=== PATIENT | male | born 1970 | race Caucasian/White ===

== ENCOUNTER 2017-11-12 09:23 | Observation (INO) | payer OTHER ==
--- NOTE | 2017-11-11 15:23 | Diagnostic Imaging Report ---
PROCEDURE: X-RAY CHEST, TWO VIEWS COMPARISON: None. INDICATIONS: PRE OP CERVICAL SURGERY FINDINGS: LUNGS: Well-inflated without mass or infiltrate. Pulmonary vascular markings are normal. PLEURA: No effusions or pneumothorax. HEART \T\ MEDIASTINUM: Cardiomediastinal silhouette is normal. No hilar lymphadenopathy. Small calcified mediastinal lymph nodes are present. BONES \T\ SOFT TISSUES: No acute findings. Medical devices: Laparoscopic gastric band is in appropriate orientation. CONCLUSION: No acute cardiopulmonary process. Dictated by: Tatyana Ayala M.D. on 11/11/2017 at 15:24 Electronically approved by: Tatyana Ayala M.D. on 11/11/2017 at 15:24
[2017-11-11 15:35] LABS: BASOPHILS # (AUTO) 0.1 (0.0-0.1); BASOPHILS % 0.7 % (0.0-1.0); EOSINOPHILS # (AUTO) 0.1 (0.0-0.4); EOSINOPHILS % 0.9 % (0.0-6.0); HEMATOCRIT 39.5 % (38.2-49.6); HEMOGLOBIN 13.6 g/dL (14.0-18.0); LYMPHOCYTES # (AUTO) 2.7 (1.0-3.2); LYMPHOCYTES % 30.3 % (18.0-39.1); MEAN CORPUSCULAR HEMOGLOBIN 31.8 pg (28-32); MEAN CORPUSCULAR HGB CONC 34.4 g/dL (31-35); MEAN CORPUSCULAR VOLUME 92.3 fL (81-99); MONOCYTES # (AUTO) 0.7 (0.2-0.8); MONOCYTES % 7.4 % (4.4-11.3); NEUTROPHILS # (AUTO) 5.4 (2.1-6.9); NEUTROPHILS % 59.8 % (38.7-80.0); PLATELET COUNT 276 x10e3/uL (140-360); RED BLOOD COUNT 4.28 x10e6/uL (4.3-5.7)
[2017-11-11 15:39] LABS: INR 1.03; PARTIAL THROMBOPLASTIN TIME 25.3 seconds (23.8-35.5); PROTHROMBIN TIME 12.7 seconds (11.9-14.5)
[2017-11-11 15:47] LABS: ANION GAP 11.8 mmol/L (8-16); BLOOD UREA NITROGEN 17 mg/dL (7-26); BUN/CREATININE RATIO 17 (6-25); CALCIUM 9.4 mg/dL (8.4-10.2); CARBON DIOXIDE 25 mmol/L (22-29); CHLORIDE 105 mmol/L (98-107); CREATININE, SERUM 0.98 mg/dL (0.72-1.25); EST GLOMERULAR FILTRATION RATE > 60 ML/MIN (60-); GLUCOSE 93 mg/dL (74-118); POTASSIUM 4.8 mmol/L (3.5-5.1); SODIUM 137 mmol/L (136-145)
[~2017-11-12] VITALS: Ht 188 cm; Wt 148.3 kg
[~2017-11-12 09:23] MED LIST: ADDERALL XR 3030 MG PO; AZELASTINE137 MCG/0.; BACITRACIN 50,000 UNIT VIAL ONE; BUDESONIDE0.5 GM; BUPIVACAINE 0.5%/EPI 30 ML SDV INJ ONE; BUPROPION HCL150 MG PO; CLOBETASOL1 EA/15 GM TOP; CLORTRIMAZOLE; CRESTOR10 MG PO; CYCLOBENZAPRINE10 MG PO; DIVALPROEX SOD250 M1 PO; EPINEPHRINE 11 MG/ML INJ; FLOMAX0.4 MG PO; FLUTICASONE; FOLIC ACID1 MG PO; GELATIN SPONGE SZ 100 ONE; LEXAPRO10 MG PO; LIDOCAINE HCL50 ML TOP; LORAZEPAM0.5 MG PO; MAXALT MLT10 MG PO; METHOCARBAMOL750 MG PO; METOPROLOL TART25 MG PO; MUPIROCIN22 GM; ORENCIA 250 MG250 MG INJ; PREDNISONE10 MG PO; PROMETHAZINE HC25 M1 PO; RELPAX40 MG PO; SULFASALAZINE500 MG PO; TACROLIMUS TOP; THROMBIN FOR SOLN 5,000 UNIT VIAL ONE; VENTOLIN HFA18 GM INH; VOLTAREN100 GM TOP
--- OUTSIDE RECORDS SUMMARY | 2017-11-12 09:25 | XMS REPORT | Clinical Summary ---
Author Author [facility] Organization [facility] Address Unknown Phone Unavailable Care Team Providers Care Tape Deck Installer Name Role Phone Evelio Rivas MD PCP Allergies Active Allergy Reactions Severity Noted Date Comments Aspirin Anaphylaxis High 01/20/2016 Amoxicillin-Pot GI Intolerance High 01/19/2016 vomiting Clavulanate Tramadol 03/25/2017 Night payan Current Medications Prescription Sig. Disp. Refills Start End Date Status Date amphetamine-dextroampheta Take 30 mg by mouth every Active mine XR (ADDERALL XR) 30 morning. MG 24 hr capsule LORAZepam (ATIVAN) 0.5 MG Take 0.5 mg by mouth Active tablet nightly as needed (sleep). cetirizine (ZyrTEC) 10 MG Take 10 mg by mouth daily Active tablet as needed for allergies. rosuvastatin (CRESTOR) 10 Take 10 mg by mouth Active MG tablet nightly. buPROPion XL (WELLBUTRIN Take 300 mg by mouth Active XL) 300 MG 24 hr tablet daily. fluticasone (FLONASE) 50 1 spray into each nostril Active mcg/actuation nasal spray 2 (two) times a day. polyethylene glycol Take 8.5 g by mouth daily Active (MIRALAX) 17 gram packet as needed. ibuprofen (ADVIL,MOTRIN) Take 200 mg by mouth Active 200 MG tablet every 6 (six) hours as needed for mild pain. omeprazole-sodium Take 1 capsule by mouth Active bicarbonate (ZEGERID) daily as needed. 20-1.1 mg-gram capsule azelastine (ASTELIN) 137 1 spray into each nostril Active mcg (0.1 %) nasal spray 2 (two) times a day. Use in each nostril as directed MULTIVITS,CA,MIN/IRON/FA/ Take by mouth. Active LYCOP (CENTRUM MEN ORAL) cholecalciferol, vitamin Take by mouth. Active D3, (VITAMIN D3) 5,000 unit tablet PROAIR HFA 90 as needed. 0 08/05/20 Active mcg/actuation inhaler 16 tamsulosin (FLOMAX) 0.4 Take 0.4 mg by mouth Active mg capsule,extended daily. Take 2 pills at release 24hr night sulfaSALAzine Take 500 mg by mouth 4 Active (AZULFIDINE) 500 mg (four) times a day. tablet adalimumab (HUMIRA) 40 Inject 40 mg under the Active mg/0.8 mL pen injector skin every 14 (fourteen) kit days. FOLIC ACID ORAL Take 1 mg by mouth. Takes Active 3xdaily predniSONE (DELTASONE) 10 Take 1 tablet (10 mg 16 tablet 0 04/24/20 05/01/20 mg tablet total) by mouth See Admin 17 17 Instructions for 7 days. Take 3 tabs for 3 days, 2 tabs for 2d, 1 tab for 1d, 0.5 tab for 1d. ciprofloxacin (CIPRO) 500 Take 1 tablet (500 mg 14 tablet 0 04/24/20 05/01/20 MG tablet total) by mouth 2 (two) 17 17 times a day for 7 days. 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 Shortness of breath 03/16/2016 Abdominal pain, right lower quadrant 01/20/2016 Electrolyte and fluid disorder 01/20/2016 Encounters Date Type Specialty Care Team Description 09/09/2017 Lab Lab Valerie Tang, Chronic frontal sinusitis (Primary Dx) 04/24/2017 [facility] Plastic Surgery Valerie Tang, Chronic sinusitis Encounter 04/24/2017 Anesthesia Plastic Surgery Mitchell Hay, Event 04/24/2017 Procedure Pass Plastic Surgery 04/24/2017 Surgery Plastic Surgery Valerie Tang, BILATERAL ENDOSCOPIC SINUS SURGERY W/ FUSION, FRONTAL SINUS DRILL OUT 04/14/2017 [facility] Plastic Surgery Valerie Tang, Encounter 04/14/2017 Procedure Pass Plastic Surgery 04/14/2017 Surgery Plastic Surgery Valerie Tang, BILATERAL ENDOSCOPIC SINUS SURGERY W/ FUSION, FRONTAL SINUS DRILLOUT 03/25/2017 Pre-Admit Pre-Admission Testing Valerie Tang, Preop testing (Primary Testing MD Dx) Appointment 02/27/2017 Lab Lab Silverio Gardner MD Adenoid vegetations (Primary Dx) 01/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 Lab Lab Valerie Tang, Chronic frontal sinusitis (Primary Dx) after 11/11/2016 Family History Medical History Relation Name Comments Diverticulitis Brother Heart disease Brother Diverticulitis Father Esophageal cancer Father Diabetes Mother Relation Name Status Comments Brother Alive Father Mother Alive Social History Tobacco Use Types Packs/Day Years Used Date Former Smoker 2 Quit: 1994 Smokeless Tobacco: Never Used Tobacco Cessation: Counseling Given: No Alcohol Use Drinks/Week oz/Week Comments Yes occasional Sex Assigned at Date Recorded Not on file Last Filed Vital Signs Vital Sign Reading Time Taken Blood Pressure 145/76 04/24/2017 6:43 PM CDT Pulse 82 04/24/2017 6:43 PM CDT Temperature 36.4 C (97.5 F) 04/24/2017 6:30 PM CDT Respiratory Rate 11 04/24/2017 6:43 PM CDT Oxygen Saturation 97% 04/24/2017 6:43 PM CDT Inhaled Oxygen - - Concentration Weight 142 kg (312 lb) 04/24/2017 12:15 PM CDT Height 188 cm (6' 2") 03/25/2017 12:54 PM CDT Body Mass Index 40.06 04/24/2017 12:15 PM CDT Plan of Treatment Health Maintenance Due Date Last Done Comments INFLUENZA VACCINE 03/17/2017 Implants Implanted Type Area Commissions Coordinator Device Expiration Model / Identifier Date Serial / Lot Propel Mini - Otolaryngo N/A: Nose INTERSECT ENT 08/25/2018 [id number] / [id number] - logy [id number] Implants 0/$$[id number] Implanted: Qty: 1 on 04/24/2017 by or Sets [id number] Valerie Tang MD W / [id number] Procedures Procedure Name Priority Date/Time Associated Diagnosis Comments NM AN ELECTIVE Routine 04/24/2017 ENDOTRACHEAL AIRWAY 2:51 PM CDT Procedure Note - King Baez CRNA - 04/24/2017 2:50 PM CDT Airway Date/Time: 04/24/2017 2:36 PM Performed by: KING BAEZ Authorized by: MITCHELL HAY Location: OR Urgency: Elective Difficult Airway: No Resident/C RNA: KING BAEZ Performed by: resident/C RNA Preoxygena keturah with 100% O2: Yes Mask Ventilatio n: Easy mask Final Airway Type: Endotrache al airway Final Endotrache al Airway: ETT and reinforced tube Cuffed: Yes Technique Used: Direct laryngosco py Devices/Me thods Used in Placement: Intubatin g stylet Insertion Site: Oral Blade Type: Romero Laryngosco pe Blade/Vide olaryngosc ope Blade Size: 2 ETT Size (mm): 8.0 Cuff at minimum occlusion pressure: Yes Measured from: Lips ETT to Lips (cm): 22 Placement Verified by: CO2 detection, direct visualizat ion and equal breath sounds Laryngosco pic view: Grade IIa - partial view of glottis Rapid Sequence Induction (RSI): Yes Number of Attempts at Approach: 1 BILATERAL ENDOSCOPIC 04/24/2017 Chronic sinusitis SINUS SURGERY W/ FUSION, 1:45 PM CDT FRONTAL SINUS DRILL OUT Case Notes FUSION, EST 3HR, DRILLS, FRONTAL SINUS SET Special Needs FUSION, EST 3HR, DRILLS, FRONTAL SINUS SET after 11/11/2016 Results * Aerobic culture (09/09/2017 5:14 PM) Only the most recent of 4 results within the time period is included. Component Value Ref Range Aerobic culture isolate Pseudomonas aeruginosa Occasional , susceptibility to follow This organism is multi-drug resistant. (A) Comment: Specimen Information Specimen Source: Sinus Specimen Site: Nose Specimen Performing Laboratory Sinus - Nose [facility] DEPARTMENT OF PATHOLOGY AND GENOMIC MEDICINE [address] [place] [phone] Organism Antibiotic Method Susceptibility Pseudomonas aeruginosa Amikacin IRENE 32 mcg/mL: Resistant Pseudomonas aeruginosa Aztreonam IRENE >16 mcg/mL: Resistant Pseudomonas aeruginosa Ceftazidime IRENE >16 mcg/mL: Resistant Pseudomonas aeruginosa Ciprofloxacin IRENE >2 mcg/mL: Resistant Pseudomonas aeruginosa Cefipime IRENE >16 mcg/mL: Resistant Pseudomonas aeruginosa Gentamicin IRENE >8 mcg/mL: Resistant Pseudomonas aeruginosa Imipenem IRENE >8 mcg/mL: Resistant Pseudomonas aeruginosa Levofloxacin IRENE <=1 mcg/mL: Susceptible Pseudomonas aeruginosa Meropenem IRENE >8 mcg/mL: Resistant Pseudomonas aeruginosa Tobramycin IRENE 8 mcg/mL: Resistant Pseudomonas aeruginosa Piperacillin/Tazobactam IRENE >64/4 mcg/mL: Resistant Pseudomonas aeruginosa Polymixin B KB mm: Susceptible Pseudomonas aeruginosa Ceftolozane-Tazobactam KB mm: Susceptible Pseudomonas aeruginosa Ceftazidime-Avibactam KB mm: Susceptible * Gram stain (09/09/2017 5:14 PM) Only the most recent of 4 results within the time period is included. Component Value Ref Range Gram stain isolate Moderate WBC's Many Gram negative rods Comment: Specimen Information Specimen Source: Sinus Specimen Site: Nose Specimen Performing Laboratory Sinus - Nose [facility] DEPARTMENT OF PATHOLOGY AND [facility] MEDICINE [address] [place] [address] * Anaerobic culture (09/09/2017 5:14 PM) Only the most recent of 3 results within the time period is included. Component Value Ref Range Anaerobic culture isolate No anaerobic organisms isolated. Comment: Specimen Information Specimen Source: Sinus Specimen Site: Nose Specimen Performing Laboratory Sinus - Nose [facility] DEPARTMENT OF PATHOLOGY AND [facility] MEDICINE [address] [place] [address] * Fungus smear (04/24/2017 3:01 PM) Component Value Ref Range Fungus smear No fungi observed. Comment: Specimen Information Specimen Source: Sinus Specimen Site: B. Nose (Right frontal recess) Specimen Performing Laboratory Sinus [facility] DEPARTMENT OF PATHOLOGY AND [facility] MEDICINE [address] [place] [address] * Fungus culture (04/24/2017 3:01 PM) Component Value Ref Range Fungus culture isolate No growth after 4 weeks of incubation. Comment: Specimen Information Specimen Source: Sinus Specimen Site: B. Nose (Right frontal recess) Specimen Performing Laboratory Fluid - Nose [facility] DEPARTMENT OF PATHOLOGY AND GENOMIC MEDICINE [address] [place] [address] * ECG Pre/Post Op (03/25/2017 1:32 PM) Component Value Ref Range Ventricular rate 65 Atrial rate 65 NM interval 154 QRSD interval 102 QT interval 432 QTC interval 449 P axis 1 39 QRS axis 1 16 T wave axis 26 EKG impression Sinus rhythm with occasional premature ventricular complexes-Otherwise normal ECG-In automated comparison with ECG of 28-AUG-2016 17:14,-premature ventricular complexes are now present- Specimen Performing Laboratory [facility] MUSE [address] [place] [address] * Estimated GFR (03/25/2017 1:13 PM) Component Value Ref Range GFR Non Af Amer 80 mL/min/1.73 m2 GFR Af Amer >90 mL/min/1.73 m2 Comment: Chronic kidney disease: <60 mL/min/1.73m2 Kidney failure: <15 mL/min/1.73m2 The estimated GFR is calculated from the IDMS-traceable Modification of Diet in Renal Disease Equation. The accuracy of the calculation is poor when the creatinine is normal. Calculated values >90 mL/min/1.73m2 are not reported. This equation has not been validated in children (<18 years), women, the elderly (>70 years), or ethnic groups other than Caucasians and Americans. Specimen Performing Laboratory Plasma specimen [facility] DEPARTMENT OF PATHOLOGY AND GENOMIC MEDICINE [address] [place], [place] [id number] * CBC with platelet and differential (03/25/2017 1:13 PM) Component Value Ref Range WBC 9.44 4.50 - 11.00 k/uL RBC 4.07 (L) 4.40 - 6.00 m/uL HGB 12.8 (L) 14.0 - 18.0 g/dL HCT 38.9 (L) 41.0 - 51.0 % MCV 95.6 82.0 - 100.0 fL MCH 31.4 27.0 - 34.0 pg MCHC 32.9 31.0 - 37.0 g/dL RDW - SD 47.6 37.0 - 55.0 fL MPV 10.4 8.8 - 13.2 fL Platelet count 274 150 - 400 k/uL Nucleated RBC 0.00 /100 WBC Neutrophils 48.2 39.0 - 69.0 % Lymphocytes 37.8 25.0 - 45.0 % Monocytes 10.6 (H) 0.0 - 10.0 % Eosinophils 2.2 0.0 - 5.0 % Basophils 0.5 0.0 - 1.0 % Immature granulocytes 0.7Comment: "Immature granulocytes" 0.0 - 1.0 % (promyelocytes, myelocytes, metamyelocytes) Specimen Performing Laboratory Blood [facility] DEPARTMENT OF PATHOLOGY AND GENOMIC MEDICINE [address] [place] [phone] * Comprehensive metabolic panel (03/25/2017 1:13 PM) Component Value Ref Range Sodium 141 135 - 148 mEq/L Potassium 4.5 3.5 - 5.0 mEq/L Chloride 101 98 - 112 mEq/L CO2 26 24 - 31 mEq/L Anion gap 14 7 - 15 mEq/L Comment: Starting from November , anion gap calculation no longer incorporates potassium. Please note the change. BUN 16 6 - 20 mg/dL Creatinine 1.0 0.7 - 1.2 mg/dL Glucose 88 65 - 99 mg/dL Calcium 9.2 8.3 - 10.2 mg/dL Protein 7.2 6.3 - 8.3 g/dL Comment: [place] 4.6-7.0 g/dL 1 week 4.4-7.6 g/dL 7 months-1year 5.1-7.3 g/dL 1-2 years 5.6-7.5 g/dL >3 years 6.0-8.0 g/dL 18-150 6.3-8.3 g/dL Albumin 3.5 3.5 - 5.0 g/dL A/G ratio 0.9 0.7 - 3.8 Alkaline phosphatase 89 40 - 129 U/L AST 19 10 - 50 U/L ALT 16 5 - 50 U/L Total bilirubin 0.4 0.0 - 1.2 mg/dL Specimen Performing Laboratory Plasma specimen [facility] DEPARTMENT OF PATHOLOGY AND GENOMIC MEDICINE [address] [place] [phone] after 11/11/2016 Insurance Payer Benefit Subscriber ID Type Phone Address Plan / Group [facility] xxxxxxxxx HMO/PPO THCARE CHOICE/CHO ICE + Home:
--- OUTSIDE RECORDS SUMMARY | 2017-11-12 09:25 | XMS REPORT ---
Author Author [facility] Address Unknown Phone Unavailable Care Team Providers Care Hair Spring Winder Name Role Phone ESCOBAR MITCHELL Unavailable Unavailable Problems This patient has no known problems. Allergies, Adverse Reactions, Alerts This patient has no known allergies or adverse reactions. Medications This patient has no known medications. Results Test Description Test Time Test Comments Text Results Atomic Results Result Comments CHEST 2 VIEWS [place] [address] Patient Name: MAYANK GIRON MR #: [id number] : 1970 Age/Sex: 47/M Req # : [id number] Adm Physician: Ordered by: ESCOBAR MITCHELL MD Report #: [id number] Location: OR Room/Bed: Procedure: [id number] DX/CHEST 2 VIEWS Exam Date: Exam Time: REPORT STATUS: Signed PROCEDURE: X-RAY CHEST, TWO VIEWS COMPARISON: None. INDICATIONS: PRE OP CERVICAL SURGERY FINDINGS: LUNGS: Well- inflated without mass or infiltrate. Pulmonary vascular markings are normal. PLEURA: No effusions or pneumothorax. HEART T MEDIASTINUM: Cardiomediastinal silhouette is normal. No hilar lymphadenopathy. Small calcified mediastinal lymph nodes are present. BONES T SOFT TISSUES: No acute findings. Medical devices: Laparoscopic gastric band is in appropriate orientation. CONCLUSION: No acute cardiopulmonary process. Dictated by: Tan Ayala M.D. on 2017 at 15:24 Electronically approved by: Tan Ayala M.D. on 2017 at 15:24 Dictated By: TAN AYALA MD [id number] Transcribed By : KUMAR on 11/11/17 1524 COPY TO: ESCOBAR MITCHELL MD
[2017-11-12] MEDS ORDERED: VANCOMYCIN HCL 1,500 MG in SODIUM CHLORIDE 0.9% 250ML 300 ML IV ONE (09:50)
[2017-11-12] MEDS ORDERED: GLYCOPYRROLATE INJ 0.2 MG/ML VIAL ONE (12:21)
[2017-11-12] MEDS ORDERED: MAGNESIUM/ALUMINUM/SIMETHICONE 30 ML UDC PO PRN (13:00)
[2017-11-12] MEDS ORDERED: CYCLOBENZAPRINE HCL 10 MG TAB PO SCH (13:00)
[2017-11-12] MEDS ORDERED: ACETAMINOPHEN 325 MG TAB PO PRN (13:00)
[2017-11-12] MEDS ORDERED: ALBUTEROL SULFATE HFA 8GM INHALATION AEROSOL INH SCH (13:00)
[2017-11-12] MEDS ORDERED: PROMETHAZINE HCL (IM) 25 MG/ML VIAL IM PRN (13:00)
[2017-11-12] MEDS ORDERED: ONDANSETRON HCL INJ 2 MG/ML VIAL IV PRN (13:00)
[2017-11-12] MEDS ORDERED: ZOLPIDEM TARTRATE 5 MG TAB PO PRN (13:00)
[2017-11-12] MEDS ORDERED: PROMETHAZINE HCL 25 MG TAB PO SCH (13:00)
[2017-11-12] MEDS ORDERED: METHOCARBAMOL 750 MG TAB PO SCH (13:00)
[2017-11-12] MEDS ORDERED: LIDOCAINE HCL 4% 50 ML BTL TOP SCH (13:00)
[2017-11-12] MEDS ORDERED: LORAZEPAM 0.5 MG TAB PO SCH (13:00)
[2017-11-12] MEDS ORDERED: CEPACOL SORE THROAT LOZENGES PO PRN (13:00)
[2017-11-12] MEDS ORDERED: MORPHINE SULFATE 5 MG/ML VIAL IM PRN (13:00)
[2017-11-12] MEDS ORDERED: AZELASTINE HCL 137 MCG NASAL SPRAY NS SCH (13:00)
[2017-11-12] MEDS ORDERED: MORPHINE SULFATE 2 MG/ML SYR ONE (13:09)
[2017-11-12] MEDS ORDERED: AZELASTINE HCL 137 MCG NASAL SPRAY NS PRN (13:15)
[2017-11-12] MEDS: HYDROMORPHONE 2MG/ML INJ IV PRN ×2 (13:15→20:05)
[2017-11-12] MEDS ORDERED: CYCLOBENZAPRINE HCL 10 MG TAB PO PRN (13:30)
[2017-11-12] MEDS ORDERED: FENTANYL CITRATE/PF 100MCG/2 ML INJ ONE ×2 (13:38→18:54)
[2017-11-12] MEDS ORDERED: LORAZEPAM 0.5 MG TAB PO PRN (13:45)
[2017-11-12] MEDS ORDERED: METHOCARBAMOL 750 MG TAB PO PRN (13:45)
[2017-11-12] MEDS ORDERED: PROMETHAZINE HCL 25 MG TAB PO PRN (13:45)
--- OUTSIDE RECORDS SUMMARY | 2017-11-12 13:59 | XMS REPORT | Clinical Summary ---
Author Author [facility] Organization [facility] Address Unknown Phone Unavailable Care Team Providers Care Product Design Specialist Name Role Phone Evelio Rivas MD PCP [...] Tang, Chronic frontal sinusitis (Primary Dx) 04/24/2017 [facility] Plastic Surgery Valerie Tang, Chronic sinusitis Encounter 04/24/2017 Anesthesia Plastic Surgery Mitchell Hay, Event 04/24/2017 Procedure Pass Plastic Surgery 04/24/2017 Surgery Plastic Surgery Valerie Tang, BILATERAL ENDOSCOPIC SINUS SURGERY W/ FUSION, FRONTAL SINUS DRILL OUT 04/14/2017 [facility] Plastic Surgery Valerie Tang, Encounter 04/14/2017 Procedure [...] INFLUENZA VACCINE 03/17/2017 Implants Implanted Type Area Manager Implementation Device Expiration Model / Identifier Date Serial / Lot Propel Mini - Otolaryngo N/A: Nose INTERSECT ENT 08/25/2018 59517 / [id number] - logy [id number] Implants 0/$$[id number] Implanted: Qty: 1 on 04/24/2017 by or Sets [id number] Valerie Tang MD W / [id number] Procedures Procedure Name Priority Date/Time Associated Diagnosis Comments OH AN ELECTIVE Routine 04/24/2017 ENDOTRACHEAL AIRWAY 2:51 [...] Nose Specimen Performing Laboratory Sinus - Nose [facility] DEPARTMENT OF PATHOLOGY AND GENOMIC MEDICINE [address] [place] [phone] Organism Antibiotic Method Susceptibility Pseudomonas aeruginosa Amikacin [...] Nose Specimen Performing Laboratory Sinus - Nose [facility] DEPARTMENT OF PATHOLOGY AND [facility] MEDICINE [address] [place] [address] * Anaerobic culture (09/09/2017 5:14 PM) Only the most recent of 3 results within the time period is included. Component Value Ref Range Anaerobic culture isolate No anaerobic organisms isolated. Comment: Specimen Information Specimen Source: Sinus Specimen Site: Nose Specimen Performing Laboratory Sinus - Nose [facility] DEPARTMENT OF PATHOLOGY AND [facility] MEDICINE [address] [place] [address] * Fungus smear (04/24/2017 3:01 PM) Component Value Ref Range Fungus smear No fungi observed. Comment: Specimen Information Specimen Source: Sinus Specimen Site: B. Nose (Right frontal recess) Specimen Performing Laboratory Sinus [facility] DEPARTMENT OF PATHOLOGY AND [facility] MEDICINE [address] [place] [address] * Fungus culture (04/24/2017 3:01 PM) Component Value Ref Range Fungus culture isolate No growth after 4 weeks of incubation. Comment: Specimen Information Specimen Source: Sinus Specimen Site: B. Nose (Right frontal recess) Specimen Performing Laboratory Fluid - Nose [facility] DEPARTMENT OF PATHOLOGY AND GENOMIC MEDICINE [address] [place] [address] * ECG Pre/Post Op (03/25/2017 1:32 PM) Component Value Ref Range Ventricular rate 65 Atrial rate 65 OH interval 154 QRSD interval 102 QT interval 432 QTC interval 449 P axis 1 39 QRS axis 1 16 T wave axis 26 EKG impression Sinus rhythm with occasional premature ventricular complexes-Otherwise normal ECG-In automated comparison with ECG of 28-AUG-2016 17:14,-premature ventricular complexes are now present- Specimen Performing Laboratory [facility] MUSE [address] [place] [address] * Estimated GFR (03/25/2017 1:13 PM) Component [...] and Americans. Specimen Performing Laboratory Plasma specimen [facility] DEPARTMENT OF PATHOLOGY AND GENOMIC MEDICINE [address] [place], [place] [phone] * CBC with platelet and differential (03/25/2017 [...] (promyelocytes, myelocytes, metamyelocytes) Specimen Performing Laboratory Blood [facility] DEPARTMENT OF PATHOLOGY AND GENOMIC MEDICINE [address] [place] [address] * Comprehensive metabolic panel (03/25/2017 1:13 PM) [...] Protein 7.2 6.3 - 8.3 g/dL Comment: [place] 4.6-7.0 g/dL 1 week 4.4-7.6 g/dL 7 [...] 1.2 mg/dL Specimen Performing Laboratory Plasma specimen [facility] DEPARTMENT OF PATHOLOGY AND GENOMIC MEDICINE [address] [place] [address] after 11/11/2016 Insurance Payer Benefit Subscriber ID Type Phone Address Plan / Group [facility] xxxxxxxxx HMO/PPO THCARE CHOICE/CHO ICE + Home:
[2017-11-12] MEDS ORDERED: CEFAZOLIN SOD 1 GM/NS 50ML 50 ML IV SCH (14:00)
[2017-11-12] MEDS: OXYCODONE/ACETAMINOPHEN 5-325 1 EACH TABLET PO PRN ×3 (14:13→22:42)
[2017-11-12] MEDS: CARISOPRODOL 350 MG TAB PO PRN ×3 (14:13→22:42)
[2017-11-12 14:30] VITALS: BP 142/67
[2017-11-12] MEDS: LACTATED RINGER'S 1,000 ML IV SCH ×2 (15:49→21:14)
[2017-11-12] MEDS: DIPHENHYDRAMINE HCL 25 MG CAP PO PRN ×2 (15:49→20:05)
[2017-11-12] MEDS: PREDNISONE 10 MG TAB PO SCH ×2 (15:49→19:47)
[2017-11-12 16:02] VITALS: BP 142/67
[2017-11-12] MEDS: CEFAZOLIN SOD 1 GM VIAL IV SCH (16:07)
[2017-11-12 16:35] VITALS: BP 124/77
[2017-11-12] MEDS: SULFASALAZINE 500 MG TAB PO SCH (17:31)
[2017-11-12] MEDS ORDERED: DEXAMETHASONE SOD PHOS INJ 4 MG/ML VIAL ONE (18:32)
[2017-11-12] MEDS ORDERED: EPHEDRINE SULFATE INJ 50 MG/10 ML SYR ONE (18:32)
[2017-11-12] MEDS ORDERED: LIDOCAINE HCL 2% LOCAL INJ 5 ML SDV VIAL INJ ONE (18:32)
[2017-11-12] MEDS ORDERED: NEOSTIGMINE 5 MG/5ML SYR ONE (18:32)
[2017-11-12] MEDS ORDERED: PROPOFOL IV EMULSION 10 MG/ML 20 ML VIAL ONE (18:32)
[2017-11-12] MEDS ORDERED: ONDANSETRON HCL INJ 2 MG/ML VIAL ONE (18:32)
[2017-11-12] MEDS ORDERED: SEVOFLURANE INHAL SOLN 250 ML PEN BTL ONE (18:32)
[2017-11-12] MEDS ORDERED: ACETAMINOPHEN 1000 MG/100 ML IV ONE (18:32)
[2017-11-12] MEDS ORDERED: ROCURONIUM BROMIDE 10 MG/ML 5ML VIAL ONE (18:32)
[2017-11-12] MEDS ORDERED: MIDAZOLAM HCL 2 MG/2 ML VIAL ONE (18:54)
[2017-11-12 20:00] VITALS: BP 169/66
[2017-11-12] MEDS ORDERED: SIMVASTATIN 40 MG TAB PO SCH (21:00)
[2017-11-13] VITALS: BP 128/69
[2017-11-13] MEDS: CEFAZOLIN SOD 1 GM VIAL IV SCH ×2 (01:07→08:49)
[2017-11-13] MEDS: HYDROMORPHONE 2MG/ML INJ IV PRN ×2 (01:07→06:11)
[2017-11-13] MEDS: OXYCODONE/ACETAMINOPHEN 5-325 1 EACH TABLET PO PRN ×2 (02:37→09:53)
[2017-11-13] MEDS: CARISOPRODOL 350 MG TAB PO PRN ×2 (02:37→09:53)
[2017-11-13 03:50] VITALS: BP 127/74
[2017-11-13] MEDS: LACTATED RINGER'S 1,000 ML IV SCH (05:34)
--- NOTE | 2017-11-13 06:57 | Diagnostic Imaging Report ---
C-SPINE 2 VIEWS AP LATERAL Comparison: None Clinical history: Status post cervical surgery Findings: Visualization through C6 on lateral view. Straightening of the normal cervical lordosis which may be positional. Postsurgical changes are seen status post C5-6 integrated intervertebral device for cervical fusion. Soft tissue gas and swelling is noted. Impression: Postsurgical changes status post C5-6 fusion. Signed by: Dr Sydni Mcdaniel MD on 11/13/2017 6:53 AM
[2017-11-13 08:01] VITALS: BP 127/74
[2017-11-13 08:30] VITALS: BP 120/73
[2017-11-13] MEDS ORDERED: CLOBETASOL PROPIONATE 0.05% CRM 15 GM TUBE TOP SCH (09:00)
[2017-11-13] MEDS ORDERED: METOPROLOL TARTRATE 25 MG TAB PO SCH (09:00)
[2017-11-13] MEDS ORDERED: AMPHETAMINE PO SCH (09:00)
[2017-11-13] MEDS ORDERED: ELETRIPTAN HYDROBROMIDE 40 MG TAB PO SCH (09:00)
[2017-11-13] MEDS ORDERED: AMPHET ASP PO SCH (09:00)
[2017-11-13] MEDS ORDERED: MUPIROCIN 2% OINT 22 GM TUBE TOP SCH (09:00)
[2017-11-13] MEDS ORDERED: ELETRIPTAN PO SCH (09:00)
[2017-11-13] MEDS ORDERED: BUPROPION HCL SR 150 MG TAB PO SCH (09:00)
[2017-11-13] MEDS ORDERED: AMPHET PO SCH (09:00)
[2017-11-13] MEDS ORDERED: FOLIC ACID 1 MG TAB PO SCH (09:00)
[2017-11-13] MEDS ORDERED: TAMSULOSIN HCL 0.4 MG CAP PO SCH (09:00)
[2017-11-13] MEDS ORDERED: D AMPHET PO SCH (09:00)
[2017-11-13] MEDS ORDERED: ESCITALOPRAM OXALATE 10 MG TAB PO SCH (09:00)
[2017-11-13] MEDS: SULFASALAZINE 500 MG TAB PO SCH (09:53)
[2017-11-13] MEDS: PREDNISONE 10 MG TAB PO SCH (09:54)
--- NOTE | 2017-11-19 16:17 | Operative Report ---
DATE OF PROCEDURE: November 12, 2017 PREOPERATIVE DIAGNOSIS: C5-6 disk herniation and spondylosis with radiculopathy, M50.122. POSTOPERATIVE DIAGNOSIS: C5-6 disk herniation and spondylosis with radiculopathy, M50.122. PROCEDURES: 1. C5-6 anterior cervical diskectomy and microsurgical osteophyte resection and allograft fusion, [address]2730. 2. Preparation of [employer] cortical cancellous allograft, 48172. 3. C5-6 anterior cervical plating with Synthes Zero-Profile Natural plate, [id number]. ANESTHESIA: General. INDICATIONS: Patient is a 47-year-old man who presents with C5-6 disk herniation and spondylosis and was taken to the operating room for anterior cervical decompression and fusion. PROCEDURE: After the induction of general anesthesia, the patient was placed on the operating table in supine position. The right side of the neck was prepped and draped in sterile fashion. The fluoroscopic C-arm was positioned in cross-table lateral orientation. A transverse incision was created on the right side of the neck, superimposed on the C5-6 disk space as determined by fluoroscopy. The platysma was divided in line with the incision. A subplatysmal dissection was carried out. An avascular plane of dissection was developed medial to the sternocleidomastoid muscle and was followed medial to the carotid sheath to the anterior border of the cervical spine. The deep cervical fascia was opened. The esophagus was retracted to the left. The attachments of longus coli muscles to the anterolateral aspects of vertebral bodies of C5 and C6 were divided. The anterior longitudinal ligament was resected. Brashear posts were inserted into C5 and C6. The Brashear distractor was used to distract the disk space. The anterior annulus of the disk was incised with a number 11 blade. The contents of the disk were thoroughly evacuated with angled curets and pituitary rongeurs. The posterior osteophytes were meticulously drilled with a 2 mm cutting bur on a high-speed drill until they were completely removed, and the posterior annulus of the disk, herniated disk material, and the posterior longitudinal ligament were resected layer by layer until the dura was fully exposed and decompressed. The medial aspects of the uncinate processes were resected bilaterally to further expose and decompress the origins of the corresponding nerve roots. After a satisfactory decompression had been achieved, the endplates were prepared for fusion. The disk space was sized, and a piece of ORF cortical cancellous allograft was selected and prepared in saline and then loaded onto a Synthes ZPN plate. The construct was inserted into the C5-6 disk space under distraction and fluoroscopic guidance and tamped in place until the plate was flush with the anterior margin of the vertebral bodies. The plate was then screwed to the endplates of C5 and C6 with 2 pairs of 14 mm screws. All screw holes were drilled and tapped under lateral fluoroscopic guidance. All screws were locked. An excellent construct was obtained. The wound was copiously irrigated with Bacitracin solution. Meticulous hemostasis was secured. The platysma was closed with 3-0 Vicryl sutures. The skin was closed with 4-0 Monocryl sutures in subcuticular fashion. Steri-Strips and a dressing were applied. The patient was awakened, extubated and taken to the postanesthesia care unit in stable condition. No intraoperative complications were encountered. Estimated blood loss was 10 mL. Job#: [id number] SARAH
== END 2017-11-13 10:08 | disposition home or self-care (01) ==
LOC: OR 09:23 → IMCU 12:54
PROVIDERS: ADMIT Neurological Surgery; ATTEND Neurological Surgery
DX: M50.122 Cervical disc disorder at C5-C6 level with radiculopathy (principal); E78.5 Hyperlipidemia, unspecified; G43.909 Migraine, unspecified, not intractable, without status migrainosus; J45.909 Unspecified asthma, uncomplicated; J32.9 Chronic sinusitis, unspecified; G47.33 Obstructive sleep apnea (adult) (pediatric); K21.9 Gastro-esophageal reflux disease without esophagitis
CPT/HCPCS: 20931; 22551; 22845; 36415; 71046; 72040; 77003; 80048; 85025; 85610; 85730; 86850; 86900; 88304; 93005; C1713 ×2; C9359; G0378 ×2; J0690 ×2; J1100; J1170 ×2; J2001; J2250; J2270 ×2; J2405; J7050; J7120